=== PATIENT | male | born 1980 | race Caucasian/White ===

== ENCOUNTER → 2024-04-26 10:58 | Outpatient (BNVA) | payer MEDICAID, SELFPAY | PROVIDERS: Visit Provider Nurse Practitioner Family | DX: I10 Essential (primary) hypertension (principal); E03.9 Hypothyroidism, unspecified; R53.83 Other fatigue | CPT/HCPCS: 80053; 80061; 82306; 82607; 84403; 84439; 84443; 84481; 85025; 86376 ==

== ENCOUNTER → 2024-06-07 12:10 | Outpatient (BNVA) | payer MEDICAID, SELFPAY | PROVIDERS: Visit Provider Nurse Practitioner Family | DX: E03.9 Hypothyroidism, unspecified (principal); I10 Essential (primary) hypertension | CPT/HCPCS: 84439; 84443 ==

== ENCOUNTER → 2024-09-27 12:01 | Outpatient (BNVA) | payer OTHER, SELFPAY | PROVIDERS: PCP Nurse Practitioner Family; Visit Provider Nurse Practitioner Family | DX: I10 Essential (primary) hypertension (principal); E03.9 Hypothyroidism, unspecified | CPT/HCPCS: 84439; 84443; 84481 ==

== ENCOUNTER → 2024-12-10 11:28 | Outpatient (BNVA) | payer OTHER, SELFPAY | PROVIDERS: PCP Nurse Practitioner Family; Referring Provider Nurse Practitioner Family; Visit Provider Internal Medicine | DX: E03.9 Hypothyroidism, unspecified (principal); R53.83 Other fatigue; I10 Essential (primary) hypertension | CPT/HCPCS: 83516; 84439; 84443; 84480 ==

== ENCOUNTER 2025-02-11 10:48 | Outpatient (CLI) | payer OTHER, SELFPAY ==
[2025-02-11 12:28] LABS: Free T4 Free Thyroxine 0.97 ng/dL (0.82-1.77); Thyroid Stimulating Hormone 5.80 uIU/mL (0.27-4.20)
[2025-02-11 12:38] LABS: Calcium 8.9 mg/dL (8.5-10.5)
[2025-02-11 12:41] LABS: Vitamin B12 640 pg/mL (232-1245)
== END 2025-02-11 10:49 | disposition home or self-care (01) ==
LOC: LAB 10:50
PROVIDERS: PCP Nurse Practitioner Family; Visit Provider Internal Medicine
DX: E03.9 Hypothyroidism, unspecified (principal); I10 Essential (primary) hypertension; M79.7 Fibromyalgia; R53.83 Other fatigue
CPT/HCPCS: 36415; 82310; 82607; 83970; 84439; 84443; 84480

== ENCOUNTER → 2025-04-12 11:53 | Outpatient (BNVA) | payer OTHER, SELFPAY | PROVIDERS: PCP Nurse Practitioner Family; Visit Provider Internal Medicine | DX: E03.9 Hypothyroidism, unspecified (principal) | CPT/HCPCS: 36415; 84439; 84443; 84480 ==